=== PATIENT | male | born 1950 | race Caucasian/White ===

== ENCOUNTER 2016-12-01 21:22 | Emergency (ER) | payer OTHER, BC ==
--- NOTE | 2016-12-01 21:30 | PDOC ---
History of Present Illness - General History Source: Patient Exam Limitations: No Limitations <Jasiel Funes - Last Filed: 12/01/16 21:58> <Tanja Herrera - Last Filed: 12/02/16 03:39> - General Chief Complaint: Irregular Heart Beat Stated Complaint: IRREGULAR HEARTBEAT Time Seen by Provider: 12/01/16 21:29 - History of Present Illness Initial Comments: 12/01/16 21:57 The patient is a 66 year old male, with a significant past medical history of HLD and asthma, who presents to the emergency department with palpitations onset today. He states that he felt fatigued today after lunch. He also states he felt heart flutter and checked his pulse, noticing that he was skipping beats. He reports that at dinner today he once again noticed the skipping beats and decided to come to the ED for evaluation. He denies ever having this kind of symptoms before. He denies taking any supplements, energy drinks or caffeine. The patient denies chest pain, shortness of breath, headache and dizziness. Denies fever, chills, nausea, vomit, diarrhea and constipation. Allergies: None Past surgical history: Inguinal hernia repair. Social history: Social alcohol use. No tobacco or drug use reported (Jasiel Funes) Past History <Jasiel Funes - Last Filed: 12/01/16 21:58> <Tanja Herrera - Last Filed: 12/02/16 03:39> - Past Medical History Allergies/Adverse Reactions: Allergies Allergy/AdvReac Type Severity Reaction Status Date / Time No Known Allergies Allergy Unverified 12/01/16 21:32 Home Medications: Ambulatory Orders Albuterol Sulfate Inhaler - [Ventolin Hfa Inhaler -] 1 puff IH PRN PRN 12/01/16 Simvastatin [Zocor -] 20 mg PO HS 12/01/16 Review of Systems - Review of Systems Able to Perform ROS?: Yes <Jasiel Funes - Last Filed: 12/01/16 21:58> <Tanja Herrera - Last Filed: 12/02/16 03:39> - Review of Systems Comments:: 12/01/16 21:57 GENERAL/CONSTITUTIONAL: No fever or chills. No weakness. HEAD, EYES, EARS, NOSE AND THROAT: No change in vision. No ear pain or discharge. No sore throat. CARDIOVASCULAR: +Palpitations and irregular heart beat. No chest pain or shortness of breath RESPIRATORY: No cough, wheezing, or hemoptysis. GASTROINTESTINAL: No nausea, vomiting, diarrhea or constipation. GENITOURINARY: No dysuria, frequency, or change in urination. MUSCULOSKELETAL: No joint or muscle swelling or pain. No neck or back pain. SKIN: No rash NEUROLOGIC: No headache, vertigo, loss of consciousness, or change in strength/ sensation. ENDOCRINE: No increased thirst. No abnormal weight change HEMATOLOGIC/LYMPHATIC: No anemia, easy bleeding, or history of blood clots. ALLERGIC/IMMUNOLOGIC: No hives or skin allergy. (Jasiel Funes) *Physical Exam <Jasiel Funes - Last Filed: 12/01/16 21:58> <Tanja Herrera - Last Filed: 12/02/16 03:39> - Vital Signs Last Vital Signs Temp Pulse Resp BP Pulse Ox 98.2 F 79 18 135/87 99 12/01/16 21:27 12/01/16 21:27 12/01/16 21:27 12/01/16 21:27 12/01/16 21:27 - Physical Exam Comments: GENERAL:adult male, alert and oriented 3 in no acute distress HEAD: Normal with no signs of trauma. EYES: PERRLA, EOMI, sclera anicteric, conjunctiva clear. ENT: Ears normal, nares patent, oropharynx clear without exudates. Dry mucous membranes. NECK: Normal range of motion, supple without lymphadenopathy, JVD, or masses. LUNGS: Breath sounds equal, clear to auscultation bilaterally. No wheezes, and no crackles. HEART:Regular rate and rhythm, normal S1 and S2 without murmur, rub or gallop. ABDOMEN:.normal bowel sounds No guarding,tenderness or rebound.No masses No distention. EXTREMITIES: Normal range of motion, no edema. No clubbing or cyanosis. No erythema, or tenderness. NEUROLOGICAL: Cranial nerves II through XII grossly intact. Normal speech. No focal neurological deficits. MUSCULOSKELETAL: Back non-tender to palpation, no CVA tenderness SKIN: Warm, Dry, normal turgor, no rashes or lesions noted. Twelve-lead electrocardiogram reveals normal sinus rhythm with unifocal ventricular trigeminy(2 normal beats followed by PVC). There is left axis deviation. Incomplete right bundle branch block is present. There are no ST or T-wave abnormalities evident. No previous EKG tracings are available for comparison. Documentation has been prepared under my direction and personally reviewed by me in its entirety. I attest that this documented accurately reflects all work, treatment, procedures and medical decision making performed by me. (Tanja Herrera) Heart Score/ECG Review - History History: Slightly suspicious - Electrocardiogram EKG: Normal - Age Age: >/= 65 - Risk Factors Risk Factors Heart Score: Yes Hx Hypercholesterolemia Based on the list above the patient has:: 1-2 risk factors - Troponin Troponin: </= normal limit - Score Heart Score - Total: 3 <Tanja Herrera - Last Filed: 12/02/16 03:39> ED Treatment Course - LABORATORY CBC & Chemistry Diagram: 12/01/16 20:00 12/01/16 20:00 <Jasiel Funes - Last Filed: 12/01/16 21:58> - LABORATORY CBC & Chemistry Diagram: 12/01/16 20:00 12/01/16 20:00 <Tanja Herrera - Last Filed: 12/02/16 03:39> - ADDITIONAL ORDERS Additional order review: Laboratory Results 12/01/16 12/01/16 12/01/16 20:00 20:00 20:00 INR 1.02 Sodium 140 Potassium 3.7 Chloride 103 Carbon Dioxide 30 H Anion Gap 7 L BUN 18 Creatinine 1.0 Creat Clearance w eGFR > 60 Random Glucose 78 Calcium 8.6 Total Bilirubin 0.3 AST 19 ALT 20 Alkaline Phosphatase 48 Creatine Kinase 162 CK-MB (CK-2) 3.5 Cancelled CK-MB (CK-2) Rel Index 2.1 Troponin I < 0.03 L Total Protein 6.6 Albumin 3.9 12/01/16 20:00 RBC 4.27 MCV 92.4 MCHC 32.6 RDW 13.0 MPV 8.7 Neutrophils % 51.2 Lymphocytes % 38.2 Monocytes % 7.0 Eosinophils % 2.8 Basophils % 0.8 Progress Note <Jasiel Funes - Last Filed: 12/01/16 21:58> <Tanja Herrera - Last Filed: 12/02/16 03:39> - Progress Note Progress Note: As noted above, this 66-year-old man presents with a one-day history of intermittent palpitations (skipped beats) He was briefly lightheaded this afternoon but otherwise has had no chest pain/shortness of breath/diaphoresis. He has had no previous history of arrhythmia. He has a history of hyperlipidemia for which he is taking Zocor. He also has a history of asthma. Patient does have a history of drinking both hot and iced tea throughout the day but otherwise denies excessive caffeine use. He does not take other supplements and he denies smoking/alcohol use except for occasional wine (which he consumed (1 glass) today. Patient was placed on ekg monitor and CBC/chemistry profile/cardiac enzymes were drawn. Patient continued to be comfortable and without complaints. Laboratory evaluation showed evidence of mild prerenal azotemia (BUN 18/ creatinine 1.0) but no other significant abnormalities of electrolytes/liver function tests. Cardiac enzymes are not elevated. Cardiac monitoring over the hour after patient had laboratory work drawn showed no other evidence of ventricular ectopy. Repeat twelve-lead electrocardiogram was performed. This showed normal sinus rhythm at 69 bpm with incomplete right bundle branch block and left axis deviation, with no change from previous EKG except for the absence of all ventricular ectopy. (Tanja Herrera) Medical Decision Making <Jasiel Funes - Last Filed: 12/01/16 21:58> <Tanja Herrera - Last Filed: 12/02/16 03:39> - Medical Decision Making Results discussed with the patient. Patient continues to be comfortable without complaints. No further feeling of skipped beats present. Patient will be discharged with instructions to decrease the amount of tea that he consumes daily as well as decreasing alcohol consumption. Patient will call his PMD tomorrow and arrange for follow-up within the next 2- 3 days. He will return to the emergency room immediately if he has persistent sustained , persistent palpitations or experiences chest pain/shortness of breath/ lightheadedness (Tanja Herrera) *DC/Admit/Observation/Transfer <Jasiel Funes - Last Filed: 12/01/16 21:58> <Tanja Herrera - Last Filed: 12/02/16 03:39> Diagnosis at time of Disposition: Palpitations - Discharge Dispostion Disposition: HOME Condition at time of disposition: Stable - Referrals Referrals: STAFF,NOT ON [Primary Care Provider] - - Patient Instructions Printed Discharge Instructions: DI for Premature Ventricular Beats Additional Instructions: drink plenty of water decrease tea/alcohol consumption call your doctor tomorrow to arrange followup in near future return to ER if you have persistent irregular heartbeat, pain,lightheadedness, shortness of breath - Attestations Scribe Attestion: 12/01/16 21:58 Documentation prepared by Jasiel Funes, acting as medical record retrieval specialist for Tanja Herrera MD (Jasiel Funes)
[2016-12-01 21:32] VITALS: BP 135/87; PULSE 79; TEMP 98.2; BMI 23.6
[2016-12-01 21:57] LABS: BASOPHIL 0.8 % (0-2.0); EOSINOPHIL 2.8 % (0-4.5); MCH 30.1 pg (25.7-33.7); MCHC 32.6 g/dl (32.0-35.9); MEAN CELL VOLUME 92.4 fl (80-96); MEAN PLT VOLUME 8.7 fl (7.5-11.1); NEUTROPHILS 51.2 % (42.8-82.8); PLATELET COUNT 200 K/MM3 (134-434); WHITE BLOOD COUNT 6.2 K/mm3 (4.0-10.0)
[2016-12-01 22:04] LABS: INR 1.02 (0.82-1.09); PROTHROMBIN TIME (PATIENT) 11.4 SEC (10.2-13.0)
[2016-12-01 22:10] LABS: ALBUMIN 3.9 g/dl (3.5-5.0); ALK PHOS 48 U/L (32-92); ANION GAP 7 (8-16); BILIRUBIN,TOTAL 0.3 mg/dl (0.2-1.0); CALCIUM 8.6 mg/dl (8.4-10.2); CO2 30 mmol/L (22-28); GLUCOSE,RANDOM 78 mg/dl (74-106); SGOT/AST 19 U/L (10-42); SGPT/ALT 20 U/L (10-40); TOT PROT 6.6 g/dl (6.4-8.3)
[2016-12-01 22:12] LABS: CPK(DFH) 162 IU/L (38-174)
[2016-12-01 22:44] LABS: TROPONIN I (DFP) < 0.03 ng/ml (0.03-0.50)
[2016-12-01 22:45] LABS: CK MB 3.5 ng/ml (0.3-4.0)
--- NOTE | 2016-12-02 11:03 | EKG ---
Test Reason : Blood Pressure : / mmHG Vent. Rate : 069 BPM Atrial Rate : 069 BPM P-R Int : 164 ms QRS Dur : 102 ms QT Int : 410 ms P-R-T Axes : 043 -41 027 degrees QTc Int : 439 ms NORMAL SINUS RHYTHM LEFT AXIS DEVIATION INCOMPLETE RIGHT BUNDLE BRANCH BLOCK ABNORMAL ECG WHEN COMPARED WITH ECG OF 01-DEC-2016 21:28, PREMATURE VENTRICULAR COMPLEXES ARE NO LONGER PRESENT Confirmed by MERRICK SELLERS MD ([id number]) on 12/02/2016 11:02:40 AM Referred By: MD SWEENEY Confirmed By:MERRICK SELLERS MD
--- NOTE | 2016-12-02 11:03 | EKG ---
Test Reason : Blood Pressure : / mmHG Vent. Rate : 078 BPM Atrial Rate : 078 BPM P-R Int : 160 ms QRS Dur : 108 ms QT Int : 390 ms P-R-T Axes : 073 -34 035 degrees QTc Int : 444 ms SINUS RHYTHM WITH FREQUENT PREMATURE VENTRICULAR COMPLEXES LEFT AXIS DEVIATION LOW VOLTAGE QRS INCOMPLETE RIGHT BUNDLE BRANCH BLOCK ABNORMAL ECG NO PREVIOUS ECGS AVAILABLE Confirmed by MERRICK SELLERS MD ([id number]) on 12/02/2016 11:02:53 AM Referred By: ZAHRA Confirmed By:MERRICK SELLERS MD
== END 2016-12-01 23:37 | disposition home or self-care (01) ==
LOC: FER 21:22
DX: R00.2 Palpitations (principal); E78.5 Hyperlipidemia, unspecified; J45.909 Unspecified asthma, uncomplicated
CPT/HCPCS: 36415; 80053; 82550; 82553; 84484; 85025; 85610; 93005; 99283-25

== ENCOUNTER 2022-08-31 14:05 | Inpatient (IN) | payer OTHER, BC ==
[2022-08-31] MEDS ORDERED: KETOROLAC TROMETHAMINE 15 MG/ML VIAL IVPUSH ONE (14:16)
[2022-08-31] MEDS ORDERED: ONDANSETRON 4 MG/2 ML VIAL IVPUSH ONE (14:16)
[2022-08-31] MEDS ORDERED: SODIUM CHLORIDE 0.9% 500 ML INFUS.BAG IV ONE (14:16)
[2022-08-31] MEDS ORDERED: KETOROLAC TROMETHAMINE 30 MG/1 ML VIAL IM ONE (14:31)
[2022-08-31] MEDS ORDERED: ONDANSETRON 4 MG/2 ML VIAL ONE (14:32)
[2022-08-31] MEDS ORDERED: KETOROLAC TROMETHAMINE 30 MG/1 ML VIAL ONE (14:32)
[2022-08-31 14:53] LABS: HEMATOCRIT 39.6 % (35.4-49); HEMOGLOBIN 13.7 G/dL (11.7-16.9); MCH 32.1 pg (25.7-33.7); MCHC 34.6 g/dl (32.0-35.9); MEAN CELL VOLUME 92.9 fl (80-96); MEAN PLT VOLUME 8.2 fl (7.5-11.1); PLATELET COUNT 242.9 10^3/uL (134-434); RBC 4.26 10^6/uL (4.00-5.60); RDW 14.3 % (11.9-15.9); WHITE BLOOD COUNT 9.4 10^3/uL (4.0-10.8)
[2022-08-31 14:56] LABS: INR 0.99 (0.83-1.09); PROTHROMBIN TIME (PATIENT) 11.4 SEC (9.7-13.0)
[2022-08-31 14:59] LABS: ACTIVATED PTT 28.3 SECONDS (25.2-36.5)
[2022-08-31 15:03] LABS: ALBUMIN 4.1 g/dl (3.4-5.0); BILIRUBIN,TOTAL 0.6 mg/dl (0.2-1); MAGNESIUM 2.3 mg/dL (1.8-2.4)
[2022-08-31] MEDS ORDERED: morphine CARPU-JECT 4 MG/1 ML DISP.SYRIN IVPUSH ONE (15:11)
[2022-08-31] MEDS ORDERED: morphine SULFATE 4 MG/ML VIAL ONE (15:14)
[2022-08-31] MEDS ORDERED: HYDROmorphone HCL CARPU-JECT 1 MG/1 ML DISP.SYRIN IVPUSH ONE (15:43)
[2022-08-31] MEDS ORDERED: HYDROmorphone HCL/PF 1 MG/ML VIAL ONE (15:44)
[2022-08-31 15:49] LABS: PLATELET ESTIMATE ADEQUATE
[2022-08-31] MEDS ORDERED: LACTATED RINGERS SOLUTION 1000 ML INFUS.BAG IV ONE (16:28)
[2022-08-31] MEDS ORDERED: VANCOMYCIN 1 GM in D5W (PRE-DOCKED) 1,000 MG/250 ML IVPB ONE (17:31)
[2022-08-31] MEDS ORDERED: PIPERACILLIN/TAZOB 4.5 GM 4.5 GM in DEXTROSE 5%-WATER 100 ML IVPB ONE (17:31)
[2022-08-31] MEDS ORDERED: PIPERACILLIN/TAZOBACTAM 4.5 GM VIAL IVPB ONE (17:43)
[2022-08-31] MEDS ORDERED: VANCOMYCIN 1,000 MG VIAL (RESTRICTED TO ID ONLY) ONE (17:44)
[2022-08-31] MEDS ORDERED: ACETAMINOPHEN 325 MG TABLET (FP) PO PRN (19:54)
[2022-08-31] MEDS: SODIUM CHLORIDE 1,000 ML IV SCH (21:00)
[2022-08-31] MEDS: KCL 10 MEQ IVPB 10 MEQ/100 ML INFUS.BAG IVPB SCH ×2 (21:01→22:22)
[2022-08-31 21:36] VITALS: BMI 22.4
[2022-09-01] MEDS: PIPERACILLIN/TAZOB 3.375 GM 3.375 GM in DEXTROSE 5%-WATER - 50 ML IVPB SCH ×4 (01:35→20:22)
[2022-09-01] MEDS: VANCOMYCIN 1 GM in D5W (PRE-DOCKED) 1,000 MG/250 ML IVPB SCH ×2 (06:03→17:39)
[2022-09-01] MEDS ORDERED: VANCOMYCIN 1 GM in D5W (PRE-DOCKED) 1,000 MG/250 ML IVPB SCH (08:00)
[2022-09-01 08:17] LABS: CALCIUM 7.9 mg/dl (8.5-10); CREATININE 0.9 mg/dl (0.55-1.3)
[2022-09-01 09:21] LABS: BASO % 0.8 % (0-2.0); HEMATOCRIT 35.3 % (35.4-49); HEMOGLOBIN 11.6 GM/dL (11.7-16.9); LYMPH % 28.4 % (8-40); MCH 30.4 pg (25.7-33.7); MCHC 32.7 g/dl (32.0-35.9); MEAN CELL VOLUME 92.9 fl (80-96); MEAN PLT VOLUME 8.5 fl (7.5-11.1); MONO % 6.8 % (3.8-10.2); PLATELET COUNT 212 10^3/uL (134-434); WHITE BLOOD COUNT 7.3 K/mm3 (4.0-10.0)
[2022-09-01] MEDS: SODIUM CHLORIDE 1,000 ML IV SCH (21:13)
[2022-09-01] MEDS: ATORVASTATIN CA 10 MG TABLET (FP) PO SCH (21:14)
[2022-09-02] MEDS ORDERED: PIPERACILLIN/TAZOB 3.375 GM 3.375 GM in DEXTROSE 5%-WATER - 50 ML IVPB SCH ×2 (02:00→08:15)
[2022-09-02] MEDS ORDERED: VANCOMYCIN 1 GM in D5W (PRE-DOCKED) 1,000 MG/250 ML IVPB ONE (08:30)
[2022-09-02 08:36] LABS: ALBUMIN 2.9 g/dl (3.4-5.0); BILIRUBIN,TOTAL 0.8 mg/dl (0.2-1); CALCIUM 7.8 mg/dl (8.5-10); CREATININE 0.8 mg/dl (0.55-1.3); TOT PROT 5.2 g/dl (6.4-8.2)
[2022-09-02 09:06] LABS: HEMATOCRIT 35.9 % (35.4-49); HEMOGLOBIN 11.8 GM/dL (11.7-16.9); MCH 30.6 pg (25.7-33.7); MCHC 32.9 g/dl (32.0-35.9); MEAN PLT VOLUME 8.6 fl (7.5-11.1); PLATELET COUNT 210 10^3/uL (134-434); RBC 3.86 M/mm3 (4.00-5.60); RDW 14.2 % (11.9-15.9); WHITE BLOOD COUNT 6.2 K/mm3 (4.0-10.0)
[2022-09-02] MEDS ORDERED: CEFTRIAXONE 1 GM in DEXTROSE 5%-WATER - 50 ML IVPB SCH ×2 (10:00→10:15)
[2022-09-02] MEDS: PIPERACILLIN/TAZOB 3.375 GM 3.375 GM in DEXTROSE 5%-WATER - 50 ML IVPB SCH ×2 (13:00→21:35)
[2022-09-02] MEDS: ATORVASTATIN CA 10 MG TABLET (FP) PO SCH (21:35)
[2022-09-02] MEDS: SODIUM CHLORIDE 1,000 ML IV SCH (21:36)
[2022-09-03] MEDS: PIPERACILLIN/TAZOB 3.375 GM 3.375 GM in DEXTROSE 5%-WATER - 50 ML IVPB SCH ×3 (06:23→23:02)
[2022-09-03 09:50] LABS: BASO % 0.8 % (0-2.0); EOS % 2.4 % (0-4.5); HEMATOCRIT 38.3 % (35.4-49); HEMOGLOBIN 12.5 GM/dL (11.7-16.9); MCH 30.3 pg (25.7-33.7); MCHC 32.5 g/dl (32.0-35.9); MEAN CELL VOLUME 93.2 fl (80-96); MEAN PLT VOLUME 8.4 fl (7.5-11.1); MONO % 8.2 % (3.8-10.2); NEUT % 60.6 % (42.8-82.8); PLATELET COUNT 225 10^3/uL (134-434); RBC 4.11 M/mm3 (4.00-5.60); RDW 14.2 % (11.9-15.9); WHITE BLOOD COUNT 5.9 K/mm3 (4.0-10.0)
[2022-09-03] MEDS: SODIUM CHLORIDE 1,000 ML IV SCH ×2 (10:19→17:30)
[2022-09-03 11:24] LABS: BILIRUBIN,TOTAL 0.7 mg/dL (0.2-1); BLOOD UREA NITROGEN 8.4 mg/dL (7-18); CALCIUM 8.4 mg/dL (8.5-10.1); CREATININE 0.9 mg/dL (0.55-1.3); TOT PROT 5.9 g/dl (6.4-8.2)
[2022-09-03] MEDS ORDERED: MIDAZOLAM HCL 2 MG/2 ML SINGLE DOSE VIAL ONE (15:19)
[2022-09-03] MEDS ORDERED: FENTANYL CITRATE/PF 50 MCG/ML VIAL ONE (15:19)
[2022-09-03] MEDS ORDERED: SODIUM CHLORIDE 1,000 ML IV SCH (16:13)
[2022-09-03] MEDS ORDERED: ACETAMINOPHEN 325 MG TABLET (FP) PO PRN ×2 (16:13→17:26)
[2022-09-03] MEDS ORDERED: ATORVASTATIN CA 10 MG TABLET (FP) PO SCH ×2 (22:00)
[2022-09-04] MEDS: SODIUM CHLORIDE 1,000 ML IV SCH ×2 (02:10→10:40)
[2022-09-04] MEDS: PIPERACILLIN/TAZOB 3.375 GM 3.375 GM in DEXTROSE 5%-WATER - 50 ML IVPB SCH ×2 (06:04→13:35)
[2022-09-04 13:05] VITALS: PULSE 68
[2022-09-04 15:13] VITALS: BP 119/62; RESP 18; TEMP 98.3
== END 2022-09-04 15:26 | disposition home or self-care (01) | DRG 660 ==
LOC: FER 14:05 → FM/S 17:46 → J7W 09-02 18:41
PROVIDERS: ADMIT Internal Medicine
PROC: BT1DZZZ Fluoroscopy of Right Kidney, Ureter and Bladder (ICD-10-PCS; 2022-09-03)
PROC: 0T768DZ Dilation of Right Ureter with Intraluminal Device, Via Natural or Artificial Opening Endoscopic (ICD-10-PCS; principal; 2022-09-03 15:39)
DX: S37.031A Laceration of right kidney, unspecified degree, initial encounter (principal); R39.0 Extravasation of urine; E78.5 Hyperlipidemia, unspecified; J45.909 Unspecified asthma, uncomplicated; I10 Essential (primary) hypertension; X58.XXXA Exposure to other specified factors, initial encounter; Y93.9 Activity, unspecified
CPT/HCPCS: 0241U-QW; 36415; 74176-TC; 74177-TC; 80048; 80053; 81003; 81015; 83605; 83735; 85025; 85027; 85610; 85730; 86850; 86900; 86901; 87086; 94760; 99285-25; C2617

== ENCOUNTER 2022-11-18 04:26 | Day surgery (SDC) | payer OTHER, BC ==
[2022-11-16 11:15] VITALS: BMI 21.8
[2022-11-18] MEDS ORDERED: PROPOFOL 20 ML ONE (13:54)
[2022-11-18] MEDS ORDERED: ceFAZolin SODIUM 1 GM VIAL ONE (13:54)
[2022-11-18] MEDS ORDERED: MIDAZOLAM HCL 2 MG/2 ML SINGLE DOSE VIAL ONE (13:54)
[2022-11-18] MEDS ORDERED: ceFAZolin SODIUM 1 GM VIAL IVPB ONE (14:01)
[2022-11-18] MEDS ORDERED: IOHEXOL 300 MG/ML INFUS..BTL IV ONE (14:09)
[2022-11-18] MEDS ORDERED: ONDANSETRON 4 MG/2 ML VIAL IVPUSH PRN (14:24)
[2022-11-18] MEDS ORDERED: oxyCODONE HCL 5 MG TABLET PO PRN (14:24)
[2022-11-18 16:41] VITALS: RESP 20; TEMP 97.2
[2022-11-18 17:02] VITALS: BP 124/75; PULSE 59
== END 2022-11-18 17:46 | disposition home or self-care (01) ==
LOC: JASU-SURG 04:26
PROVIDERS: ATTEND Urology
PROC: 0TP98DZ Removal of Intraluminal Device from Ureter, Via Natural or Artificial Opening Endoscopic (ICD-10-PCS; principal; 2022-11-18 13:00)
PROC: BT1DYZZ Fluoroscopy of Right Kidney, Ureter and Bladder using Other Contrast (ICD-10-PCS; 2022-11-18 13:00)
DX: Z46.6 Encounter for fitting and adjustment of urinary device (principal)
CPT/HCPCS: 76000-TC-FY; 94760

== ENCOUNTER 2025-01-14 06:37 | Day surgery (SDC) | payer OTHER, BC ==
[2025-01-09 12:58] VITALS: BMI 19.9
[2025-01-14] MEDS ORDERED: SEVOFLURANE 250 ML BTL ONE (09:54)
[2025-01-14] MEDS ORDERED: PROPOFOL 20 ML ONE (09:54)
[2025-01-14] MEDS ORDERED: ACETAMINOPHEN INJECTION 100 ML ONE (09:54)
[2025-01-14] MEDS ORDERED: MIDAZOLAM HCL 2 MG/2 ML SINGLE DOSE VIAL ONE (09:54)
[2025-01-14] MEDS ORDERED: ONDANSETRON 4 MG/2 ML VIAL IVPUSH PRN (09:59)
[2025-01-14] MEDS ORDERED: oxyCODONE HCL 5 MG TABLET PO PRN (09:59)
[2025-01-14] MEDS ORDERED: LACTATED RINGERS SOLUTION 1,000 ML IV SCH (10:00)
[2025-01-14] MEDS ORDERED: DEXAMETHASONE SOD PHOSPHATE 4 MG/1 ML VIAL ONE (10:05)
[2025-01-14] MEDS ORDERED: ceFAZolin SODIUM 1 GM VIAL ONE (10:17)
[2025-01-14] MEDS: ceFAZolin 2 GRAM PREMIX BAG IVPB ONE ×2 (10:18)
[2025-01-14 12:42] VITALS: RESP 16; TEMP 97.7
[2025-01-14 13:32] VITALS: BP 106/52; PULSE 52
[2025-01-21 19:09] LABS: CA OXALATE MONOHYDR. 10 % (.); SIZE 5x3 mm (.); WEIGHT 31 mg (.)
== END 2025-01-14 13:25 | disposition home or self-care (01) ==
LOC: JASU-SURG 06:37
PROVIDERS: ATTEND Urology
PROC: 0VB Male Reproductive System, Excision (ICD-10-PCS; principal; 2025-01-14 11:00)
DX: N53.13 Anejaculatory orgasm (principal); N49.8 Inflammatory disorders of other specified male genital organs
CPT/HCPCS: 36415; 82360; 88300-TC; 88304-TC; 94760; J0131